=== PATIENT | male | born 1940 | race Caucasian/White ===

== ENCOUNTER → 2017-04-21 | Outpatient (REF) | payer MEDICARE, BC ==
[~2017-04-21] MED LIST: AMOX-559 PO; ATOR20TA22 PO; BACDS PO; DIA2 PO; DIA5 GT; DIPH-740 PO; DOC100 PO; FES4PT PO; HYDR-2946 PO; LOR5 PO; PER PO; PHENA200 PO; PRAV40TA77 PO; PRE20 PO; SULF-170 PO; TADA5TAB7 PO; TAM4 PO; TAMS0.4C76 PO; TOLT4CAP13 PO; [UNRECOGNIZED DRUG - CODE] PO; [UNRECOGNIZED DRUG - OTHER]
== END ==
LOC: ZZSENDIN 12:17
PROVIDERS: ATTEND Urology
DX: M54.5 Low back pain (principal); R10.84 Generalized abdominal pain; C68.8 Malignant neoplasm of overlapping sites of urinary organs; Z85.51 Personal history of malignant neoplasm of bladder; C67.9 Malignant neoplasm of bladder, unspecified; C61 Malignant neoplasm of prostate
CPT/HCPCS: 81001; 87088

== ENCOUNTER → 2017-05-01 | Outpatient (CLI) | payer MEDICARE, BC ==
--- NOTE | 2017-05-01 09:52 | RADIOLOGY IMAGING REPORT ---
[place] [facility] [place] NAME[place] Bharat Renae : 1940 MR: [id number] V: [id number] EXAM DATE: ORDERING PHYSICIAN: MISHA HEREDIA TECHNOLOGIST: Location: [facility] Patient: Bharat Renae : 1940 Visit/Account:[id number] Date of Sevice: 05/01/2017 ABDOMEN/PELVIS W/O CONTRAST HISTORY: Low back pain. History of renal and prostate cancer. TECHNIQUE: Axial images acquired through the abdomen/pelvis. Coronal and sagittal reformatting also performed. No IV contrast administered. One of the following dose optimization techniques was utili zed in the performance of this exam: Automated exposure control; adjustment of the mA and/or kV accor ding to the patient's size; or use of an iterative reconstruction technique. Specific details can b e referenced in the facility's radiology CT exam operational policy. COMPARISON: 04/15/2015 CT FINDINGS: Visualized lung bases: Lung bases are well-aerated. No pulmonary nodules are seen. Hepatobiliary: Negative. Spleen: Negative. Adrenals: Negative. Pancreas: Negative. Kidneys ureters and bladder: Remote left nephrectomy. Right kidney is unremarkable in appearance. Uri nary bladder unchanged in appearance. Genitalia: Radiotherapy seeds are seen to the prostate unchanged. GI: There is minimal diverticulosis seen to the colon. No evidence of inflammation. The appendix is well-visualized and normal. Small bowel unremarkable. Vessels/spaces/nodes: Mild age-appropriate atherosclerotic plaque seen to the major arteries. There is a 1.2 x 1.3 cm nodule, presumed lymph node, in the retroperitoneum just anterior to the sacr um (axial image 148 series 2). There is a second nodule in the deep pelvis left lateral to the sigmoi d colon (image 157) which measures 1.6 x 1.0 cm in diameter. Both were present previously and are unc hanged from 2016. Bones/soft tissues: There is a stable 5 mm sclerotic lesion in the left L5 pedicle (sagittal image 9 9) which is stable and unchanged as far back as 2016 and likely represents a benign bone island. Ther e is facet arthropathy lower lumbar spine but no definite evidence of degenerative disc disease. Ther e is osteoarthritic changes seen in the SI joints bilaterally and hip joints bilaterally which is min imally changed from the previous exam. There are no aggressive bone lesions identified concerning for metastatic disease. Additional findings: None pertinent. IMPRESSION: Remote left nephrectomy and radiotherapy seeds in the prostate consistent with reported history of re nal and prostate cancer. There are 2 stable prominent lymph nodes seen in the pelvis as described above unchanged from 2016. Lower lumbar facet arthropathy and arthritic changes in the SI and hip joints. Stable 5 mm sclerotic lesion L5 vertebral body likely a benign bone island. No definite evidence of metastatic disease. How ever, if if there is clinical suspicion (such as rising PSA) consider PET scan for further evaluation . Report Dictated By: Jose Abreu MD at 05/01/2017 9:28 AM Report E-Signed By: Jose Abreu MD at 05/01/2017 9:47 AM WSN:[email or web address]
== END ==
LOC: CT 01:48
PROVIDERS: ATTEND Urology
DX: Z90.5 Acquired absence of kidney (principal); Z98.890 Other specified postprocedural states; R59.0 Localized enlarged lymph nodes; M12.88 Other specific arthropathies, not elsewhere classified, other specified site
CPT/HCPCS: 74176

== ENCOUNTER → 2017-05-02 | Outpatient (REF) | payer MEDICARE, BC | LOC: ZZSENDIN 10:25 | PROVIDERS: ATTEND Urology | DX: C67.9 Malignant neoplasm of bladder, unspecified (principal); Z85.528 Personal history of other malignant neoplasm of kidney | CPT/HCPCS: 88108 ==

== ENCOUNTER → 2018-05-02 | Outpatient (REF) | payer MEDICARE, OTHER | LOC: ZZSENDIN 12:00 | PROVIDERS: ATTEND Urology | DX: R31.9 Hematuria, unspecified (principal) | CPT/HCPCS: 88108 ==

== ENCOUNTER → 2018-06-29 | Outpatient (CLI) | payer MEDICARE, OTHER, BC ==
[~2018-06-29] MED LIST changes: +EZET10TA41 PO; +FERR160T25 PO; +MULT-1335 PO; +OMEG10007 PO; +POTA99TA6 PO; +QUET25TA PO; +ROSU20TA5 PO; +VIT1CAPS9 PO
--- NOTE | 2018-06-29 13:43 | RADIOLOGY IMAGING REPORT ---
FACILITY: [facility] PATIENT NAME: Bharat Renae : 1940 MR: [id number] V: [id number] EXAM DATE: ORDERING PHYSICIAN: MISHA HEREDIA TECHNOLOGIST: Location: [facility] Patient: Bharat Rneae : 1940 Visit/Account:[id number] Date of Sevice: 06/29/2018 CT ABDOMEN PELVIS W/O CON COMPARISONS: CT abdomen and pelvis without contrast dated May 01, 2017. ADDITIONAL PERTINENT HISTORY: History of left renal cell carcinoma.. TECHNIQUE: Multiple axial images are obtained from the lung bases through the lesser trochanters with out IV contrast. One of the following dose optimization techniques was utilized in the performance o f this exam: Automated exposure control; adjustment of the mA and/or kV according to the patient's si ze; or use of an iterative reconstruction technique. Specific details can be referenced in the [facility]'s radiology CT exam operational policy. FINDINGS: Lung bases: Negative. Free air and free fluid: None. Liver: Negative for a noncontrasted examination.. Spleen: Negative for a noncontrasted examination. Adrenal glands: Negative. Kidneys, ureters and urinary bladder: Patient status post left nephrectomy. The right kidney has a n ormal noncontrasted appearance. The bladder is unremarkable. . Pancreas: Grossly negative. Gallbladder: Negative.. Bowel and mesentery: Negative. Lymph node assessment: Stable mildly prominent lymph nodes anterior to the sacrum.. Abdominal pelvic vasculature: Atherosclerotic disease of the abdominal aorta.. Intrapelvic contents: Radiation seeds within the prostate. Otherwise negative. Surrounding soft tissues: Negative. Osseous structures: Osteoarthritic changes involving both hips. Spondylitic change involving the low er lumbar spine.. IMPRESSION: 1. Patient status post left nephrectomy. 2. Stable small benign-appearing lymph nodes anterior to the sacrum. 3. No acute intra-abdominal or intrapelvic process. Report Dictated By: Alverto Spencer MD at 06/29/2018 1:33 PM Report E-Signed By: Alverto Spencer MD at 06/29/2018 1:40 PM WSN:[email or web address]
== END ==
LOC: CT 07:40
PROVIDERS: ATTEND Urology
DX: R31.0 Gross hematuria (principal); C88.8 Other malignant immunoproliferative diseases; C67.9 Malignant neoplasm of bladder, unspecified; C61 Malignant neoplasm of prostate
CPT/HCPCS: 74176

== ENCOUNTER 2018-07-02 02:07 | Day surgery (SDC) | payer MEDICARE, OTHER, BC ==
--- NOTE | 2018-06-29 15:37 | HISTORY AND PHYSICAL ---
DATE OF ADMISSION: July 02, 2018 CHIEF COMPLAINT Hematuria. HISTORY OF PRESENT ILLNESS Patient is a 78-year-old white male who is followed in Urology Clinic for history of prostate cancer, renal cancer, and bladder cancer, who recently presented complaining of a small amount of blood on his underwear and passing a small clot when voiding. He had had a negative anesthetic cystoscopy in his routine followup in mid April. At that time, the cytology was normal. He was seen in the clinic, and his urine was normal. However, he experienced another episode of a small amount of blood. It was not associated with any flank pain, nausea, vomiting, fever, chills, or other changes. A CT scan was performed without IV contrast on June 29 and was unremarkable by my interpretation. He had no evidence of recurrent tumor in the left renal bed. His bladder appeared grossly normal. He was status post brachytherapy without changes in his prostate. I was able to follow the right ureter down, and it also appeared normal throughout its course. The patient is now being brought to the operating room for planned anesthetic cystoscopy, right retrograde pyelogram, and possible left retrograde of the ureteral stump, with possible bilateral ureteroscopy. PAST MEDICAL HISTORY 1. Hypercholesterolemia. 2. Prostate cancer, status post brachytherapy and external beam radiation in 2004, with currently no evidence of disease, with the last PSA stable at 0.3 in April of this year. 3. History of renal cell carcinoma 2007, currently with no evidence of disease. 4. 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 He underwent BCG induction and maintenance therapy. The last treatment was April 2013. 5. Chronic low back pain. 6. Hepatitis 1956. 7. Anxiety and depression. PAST SURGICAL HISTORY 1. Left eye surgery for macular degeneration. 2. Colonoscopy. 3. Left radical nephrectomy 2007 for renal cell carcinoma. 4. Brachytherapy 2004. 5. Transurethral resection of bladder tumor July 2009. 6. Repeat TUR with biopsy November 2010. 7. Left hand surgery after fracture in 1961. CURRENT MEDICATIONS 1. Zetia. 2. Iron. 3. Multivitamins. 4. Seroquel. ALLERGIES Levaquin. SOCIAL HISTORY Patient lives in [place], [place]. He is . He uses ethanol on occasion. Denies tobacco use. REVIEW OF SYSTEMS Patient denies chest pain, productive cough, fever, chills, nausea, vomiting, change in weight, chronic headaches, bleeding disease, or current liver disease. PHYSICAL EXAMINATION GENERAL: Patient is a well-developed, well-nourished white male in no acute distress. HEENT: Normocephalic, atraumatic. CHEST: Clear to auscultation bilaterally. CARDIOVASCULAR: Regular rate and rhythm. ABDOMEN: Soft, nontender. No masses are palpated. GENITOURINARY: Deferred to the OR. EXTREMITIES: Without clubbing, cyanosis, or edema. NEUROLOGIC: Nonfocal. IMPRESSION A 78-year-old white male with several genitourinary malignancies, now with a small amount of blood per urethra with questionable blood clot with voiding. It appears this is likely from his prostatic urethra secondary to his radiation and brachytherapy treatment. However, given his history of transitional cell carcinoma, we will need to rule out any upper tract disease. A recent cystoscopy in the office was normal as well as with normal cytology. PLAN We will perform anesthetic cystoscopy with bilateral retrograde pyelograms and possible ureteroscopy as indicated. He understands if we need to perform right ureteroscopy, we would likely place a stent post procedure if the ureter is of adequate caliber to perform ureteroscopy in the primary setting. If it is somewhat questionable, we would place a stent for pre-stenting before ureteroscopy. He will return to the operating room for that procedure. URVASHI
[~2018-07-02] VITALS: Ht 180.3 cm; Wt 79.4 kg
[2018-07-02 07:14] VITALS: BP 141/85
[2018-07-02] MEDS ORDERED: LIDOCAINE/SOD BICARB 8.4% SYR ID ONE (08:00)
[2018-07-02] MEDS ORDERED: FAMOTIDINE 20 MG TAB PO ONE (08:00)
[2018-07-02] MEDS ORDERED: ceFAZolin(*) 1 GM VIAL 1 GM in NS(*) 0.9% 100 ML MINI-BAG 100 ML IVPB ONE (08:00)
[2018-07-02] MEDS ORDERED: MIDAZOLAM 2 MG/2 ML VIAL IVP PRN (08:00)
[2018-07-02] MEDS ORDERED: NORMOSOL R SOLN(*) 1000 ML BAG 1,000 ML IV PRN (08:00)
[2018-07-02] MEDS ORDERED: PROPOFOL EMUL(*) 10MG/ML 20 ML 20 ML ONE (08:18)
[2018-07-02] MEDS ORDERED: IOPAMIDOL-200 50 ML VIAL IS ONE (08:21)
[2018-07-02] MEDS ORDERED: BELLADONNA ALK/OPIUM 60MG SUPP PR ONE (09:10)
--- NOTE | 2018-07-02 09:53 | RADIOLOGY IMAGING REPORT ---
FACILITY: [facility] PATIENT NAME: Bharat Renae : 1940 MR: [id number] V: [id number] EXAM DATE: ORDERING PHYSICIAN: MISHA HEREDIA TECHNOLOGIST: Location: [facility] Patient: Bharat Renae : 1940 Visit/Account:[id number] Date of Sevice: 07/02/2018 Retrograde ureterogram, 91 images. HISTORY: Stent placement. COMPARISON: Abdominal CT scan 06/29/2018. The images lack side markers. A preliminary image demonstrates several vague densities projecting on the right kidney possibly representing superimposed bowel. Metal clips project on the left abdomen. Degenerative changes are present in the spine. Other images demonstrate contrast material within a nondilated right intrarenal collecting system and right proximal ureter. The distal right ureter is slightly patulous. The ureterovesical junction and lower true pelvis were not completely included. No ureteral stent is identified. FLUOROSCOPY TIME: 0.18 minutes. IMPRESSION: Unremarkable urogram. Report Dictated By: Charlie Arguello MD at 07/02/2018 9:42 AM Report E-Signed By: Charlie Arguello MD at 07/02/2018 9:49 AM WSN:[email or web address]
--- NOTE | 2018-07-02 09:53 | OPERATIVE REPORT 1 ---
EVENT DATE: July 02, 2018 SURGEON: Saran Arguelles MD ANESTHESIOLOGIST: Chi Mejia MD ANESTHESIA: General. PREOPERATIVE DIAGNOSIS Hematuria. POSTOPERATIVE DIAGNOSIS Hematuria. PROCEDURES PERFORMED 1. Anesthetic cystoscopy. 2. Right retrograde pyelogram. ESTIMATED BLOOD LOSS Minimal. IV FLUIDS Crystalloids. DRAINS None. COMPLICATIONS None. CONDITION Patient taken to the recovery room awake and in stable condition. FINDINGS 1. Friable prostate and bladder neck. 2. Normal cystoscopic exam and retrograde pyelogram. STATEMENT OF MEDICAL NECESSITY Patient is a 78-year old white male with a remote history of left renal cell carcinoma, status post nephrectomy and prostate cancer, status post brachytherapy and radiation treatment as well as transitional cell carcinoma of the bladder, status post resection with BCG treatment postoperatively who has now been experiencing small amounts of blood in his urine as well as on his underwear. He had an office cystoscopy approximately two months ago, which was normal, as well as normal cytology. He had another episode of hematuria. Therefore, a CT scan was performed without IV contrast, which was normal. He is now being brought to the operating room for planned anesthetic cystoscopy and retrograde pyelogram. After risks and benefits were explained, operative consent was signed and on the chart. DESCRIPTION OF PROCEDURE Patient was brought to the operating room. After general anesthetic was obtained, he was placed in the dorsal lithotomy position on the cystoscopic table and prepped and draped sterilely. Anesthetic cystoscopy was performed with the 21-Cymraes Olympus sheath and both 30 and 30-degree lenses. He had a normal appearing pendulous bulbar and membranous urethra. His bladder neck was mildly elevated. There was some friable superficial plethoric vessels just to the bladder neck. Upon entering the bladder, he was 2+ trabeculated. There was no evidence of tumor lesions. The right ureteral orifice was seen effluxing clear urine. At this point, the ureteral orifice was cannulated with an 8- Cymraes cone-tipped catheter and retrograde pyelogram was performed using 8 cc of contrast material, injected in a retrograde manner. Both filling and drain films were obtained. Bimanual intraoperative interpretation, this retrograde appeared normal without evidence of filling defects or obstruction. He drained promptly over the course of a minute after catheter removal. At this point, the patient's bladder was drained through the cystoscopic sheath. Bimanual exam was performed, which showed a flat firm prostate, a freely mobile bladder in the pelvis. Following this, a B and O suppository was given per rectally. The patient was awakened in the operating room and taken to the recovery area in stable condition. PLAN We will allow the patient to be discharged home today. We will plan to see him in the Urology Clinic in two to three months. He is to continue his pre- admission medicines. URVASHI
[2018-07-02] MEDS ORDERED: PHENYLEPHRINE 10 MG/1 ML VIAL ONE (10:21)
[2018-07-02 10:23] VITALS: BP 129/87
[2018-07-02 10:43] VITALS: BP_SYST 107; BP_SYST 138; BP_DIAS 65; BP_DIAS 73
== END 2018-07-02 10:23 | disposition home or self-care (01) ==
LOC: OR 02:07
PROVIDERS: ATTEND Urology
DX: R31.9 Hematuria, unspecified (principal)
CPT/HCPCS: 52005; 74420; 81001; 87088; A9270; C1758; J0690; J2250; J2370; J2704; Q9966